=== PATIENT | male | born 1960 | race Caucasian/White ===

== ENCOUNTER 2020-12-15 11:19 | Inpatient (IN) ==
[2020-12-15] MEDS ORDERED: 0.9 % Sodium Chloride 1,000 ML IVC ONE (11:40)
[2020-12-15 12:07] LABS: Hematocrit 36.2 % (37.5-50.1); Hemoglobin 11.9 g/dL (12.9-16.9); Mean Corpuscular HGB Conc 32.9 g/dL (31.6-35.5); Mean Corpuscular Volume 97.3 fL (83.0-100.0); Mean Platelet Volume 9.5 fL (9.4-12.4); Nucleated Red Blood Cells 0.5 /100 WBC (0); Platelet Count 157 K/mcL (140-400); Red Blood Count 3.72 M/mcL (4.19-5.50); Red Cell Distribution Width 16.1 % (11.5-14.5); White Blood Count 17.1 K/mcL (4.3-11.1)
[2020-12-15 12:20] LABS: Alanine Aminotransferase 22 Units/L (7-52); Albumin 3.4 g/dL (3.5-5.7); Albumin/Globulin Ratio 1.3 (1.1-2.2); Alkaline Phosphatase 92 Units/L (34-104); Aspartate Amino Transferase 19 Units/L (13-39); BUN/Creatinine Ratio 22 (6-26); Bilirubin,Direct 0.1 mg/dL (0.0-0.2); Bilirubin,Indirect 0.2 mg/dL (0.0-1.0); Bilirubin,Total 0.3 mg/dL (0.3-1.0); Blood Urea Nitrogen 23 mg/dL (8-23); Calcium 9.3 mg/dL (8.6-10.3); Carbon Dioxide 26 mEq/L (23-29); Chloride 98 mEq/L (98-107); Globulin 2.7 g/dL (2.4-3.5); Glucose 123 mg/dL (70-105); Osmolality,Calculated 287 (280-300); Potassium 3.8 mEq/L (3.5-5.1); Sodium 136 mEq/L (136-145); Total Protein 6.1 g/dL (6.4-8.9); Troponin I < 0.03 ng/mL (< 0.04); eGFR For African Americans > 60 (> 60); eGFR For Non-African Americans > 60 (> 60)
[2020-12-15 12:21] LABS: Activated Partial Thrombo Time 36.5 Seconds (26.0-36.0); INR 1.3; Prothrombin Time 14.7 Seconds (9.4-12.1)
[2020-12-15 12:36] LABS: Lymphocytes # 1.4 K/mcL (0.6-4.6); Monocytes # 0.3 K/mcL (0.0-1.3); Neutrophils # 15.4 K/mcL (1.6-8.9)
[2020-12-15 12:37] LABS: Platelet Estimate Normal (Normal); Polychromasia 1+ (Not Present)
[2020-12-15 12:47] LABS: Bilirubin,Urine Negative (Negative); Blood,Urine Negative (Negative); Clarity,Urine Clear (Clear); Color,Urine Yellow (Yellow); Glucose,Urine (UA) Normal (Normal); Ketones,Urine Negative (Negative); Leukocyte Esterase,Urine Negative (Negative); Nitrite,Urine Negative (Negative); Protein,Urine Negative (Neg-Trace); Specific Gravity,Urine 1.015 (1.010-1.025); Urobilinogen,Urine Normal (Normal)
[2020-12-15] MEDS: 0.9 % Sodium Chloride 1,000 ML IVC ONE (12:48)
[2020-12-15] MEDS ORDERED: Isovue-370 500 ML BOTTLE IVP ONE (13:19)
[2020-12-15] MEDS ORDERED: Azithromycin 500 MG in 0.9 % Sodium Chloride 250 ML IVPB ONE (14:15)
[2020-12-15] MEDS ORDERED: Ondansetron 4 MG/2 ML VIAL IVP PRN (14:47)
[2020-12-15] MEDS ORDERED: Acetaminophen 325 MG TABLET PO PRN (14:47)
[2020-12-15] MEDS ORDERED: Naloxone 0.4 MG/ML INJ IVP PRN (14:47)
[2020-12-15] MEDS ORDERED: Ipratropium/Albuterol Neb 3 ML IH PRN (14:53)
[2020-12-15] MEDS: 0.9 % Sodium Chloride 1,000 ML IVC SCH ×2 (19:49→20:15)
[2020-12-15] MEDS: Morphine Sulfate ER (12 HR) 30 MG TABLET.ER PO SCH ×3 (20:16→23:38)
[2020-12-15] MEDS: *HR* Dabigatran 75 MG CAPSULE PO SCH (20:16)
[2020-12-15] MEDS: Melatonin 3 MG TABLET PO PRN (22:36)
[2020-12-15] MEDS: Saline Nasal Spray 44 ML BOTTLE NS PRN (23:39)
[2020-12-16] MEDS: 0.9 % Sodium Chloride 1,000 ML IVC ONE (00:29)
[2020-12-16] MEDS: 0.9 % Sodium Chloride 1,000 ML IVC SCH (03:51)
[2020-12-16] MEDS: Morphine Sulfate ER (12 HR) 30 MG TABLET.ER PO SCH ×5 (03:52→20:28)
[2020-12-16] MEDS ORDERED: *HR* Enoxaparin 40 MG/0.4 ML SYRINGE SQ SCH (06:00)
[2020-12-16 07:12] LABS: Basophils # 0.1 K/mcL (0.0-0.2); Basophils % 0.4 %; Hematocrit 33.8 % (37.5-50.1); Hemoglobin 10.7 g/dL (12.9-16.9); Immature Granulocytes % 7.3 % (0-4); Lymphocytes # 1.1 K/mcL (0.6-4.6); Lymphocytes % 9.4 %; Mean Corpuscular HGB Conc 31.7 g/dL (31.6-35.5); Mean Corpuscular Hemoglobin 31.8 pg (28.0-33.3); Mean Corpuscular Volume 100.6 fL (83.0-100.0); Monocytes # 0.6 K/mcL (0.0-1.3); Monocytes % 4.8 %; Nucleated Red Blood Cells 0.4 /100 WBC (0); Platelet Count 120 K/mcL (140-400); Red Blood Count 3.36 M/mcL (4.19-5.50); Red Cell Distribution Width 16.4 % (11.5-14.5); Segmented Neutrophils % 78.1 %; White Blood Count 12.1 K/mcL (4.3-11.1)
[2020-12-16 08:23] LABS: BUN/Creatinine Ratio 23 (6-26); Blood Urea Nitrogen 25 mg/dL (8-23); Calcium 8.8 mg/dL (8.6-10.3); Carbon Dioxide 27 mEq/L (23-29); Chloride 102 mEq/L (98-107); Glucose 106 mg/dL (70-105); Magnesium 1.6 mg/dL (1.6-2.6); Osmolality,Calculated 293 (280-300); Potassium 3.6 mEq/L (3.5-5.1); Sodium 139 mEq/L (136-145); eGFR For African Americans > 60 (> 60); eGFR For Non-African Americans > 60 (> 60)
[2020-12-16 08:40] LABS: Neutrophils # 9.5 K/mcL (1.6-8.9)
[2020-12-16 08:49] LABS: Platelet Estimate Decreased (Normal)
[2020-12-16] MEDS ORDERED: NON-FORMULARY MEDICATION 1 EACH EACH (Ezetimibe [Zetia] 10 MG Tablet) PO SCH (09:00)
[2020-12-16] MEDS ORDERED: Azithromycin 500 MG in 0.9 % Sodium Chloride 250 ML IVPB SCH (09:00)
[2020-12-16] MEDS: cefTRIAXone 2,000 MG in 0.9 % Sodium Chloride Mini Bag 100 ML IVPB SCH (10:47)
[2020-12-16] MEDS: *HR* Dabigatran 75 MG CAPSULE PO SCH ×2 (10:56→20:28)
[2020-12-16] MEDS: DilTIAZem CD (24hr) 240 MG CAP.ER.24H PO SCH (10:56)
[2020-12-16] MEDS: Aspirin Enteric Coated 81 MG Tablet PO SCH (10:57)
[2020-12-16] MEDS: Azithromycin 500 MG in 0.9 % Sodium Chloride 250 ML IVPB SCH (11:30)
[2020-12-16] MEDS: Melatonin 3 MG TABLET PO PRN (20:28)
[2020-12-17] MEDS: Morphine Sulfate ER (12 HR) 30 MG TABLET.ER PO SCH ×6 (00:33→20:13)
[2020-12-17] MEDS: cefTRIAXone 2,000 MG in 0.9 % Sodium Chloride Mini Bag 100 ML IVPB SCH (08:23)
[2020-12-17] MEDS: DilTIAZem CD (24hr) 240 MG CAP.ER.24H PO SCH (08:24)
[2020-12-17] MEDS: *HR* Dabigatran 75 MG CAPSULE PO SCH ×2 (08:24→20:13)
[2020-12-17] MEDS: Aspirin Enteric Coated 81 MG Tablet PO SCH (08:24)
[2020-12-17 09:03] LABS: Hematocrit 31.8 % (37.5-50.1); Hemoglobin 10.3 g/dL (12.9-16.9); Mean Corpuscular HGB Conc 32.4 g/dL (31.6-35.5); Mean Corpuscular Hemoglobin 32.6 pg (28.0-33.3); Mean Corpuscular Volume 100.6 fL (83.0-100.0); Platelet Count 115 K/mcL (140-400); Red Blood Count 3.16 M/mcL (4.19-5.50); White Blood Count 12.3 K/mcL (4.3-11.1)
[2020-12-17 09:17] LABS: BUN/Creatinine Ratio 19 (6-26); Blood Urea Nitrogen 21 mg/dL (8-23); Calcium 8.1 mg/dL (8.6-10.3); Carbon Dioxide 26 mEq/L (23-29); Chloride 102 mEq/L (98-107); Glucose 139 mg/dL (70-105); Osmolality,Calculated 289 (280-300); Potassium 3.8 mEq/L (3.5-5.1); Sodium 137 mEq/L (136-145); eGFR For African Americans > 60 (> 60); eGFR For Non-African Americans > 60 (> 60)
[2020-12-17] MEDS: Azithromycin 500 MG in 0.9 % Sodium Chloride 250 ML IVPB SCH (09:45)
[2020-12-17] MEDS: Furosemide 20 MG TABLET PO SCH (17:25)
[2020-12-17] MEDS: Melatonin 3 MG TABLET PO PRN (20:14)
[2020-12-18] MEDS: Morphine Sulfate ER (12 HR) 30 MG TABLET.ER PO SCH ×6 (01:12→20:13)
[2020-12-18] MEDS: DilTIAZem CD (24hr) 240 MG CAP.ER.24H PO SCH (09:32)
[2020-12-18] MEDS: *HR* Dabigatran 75 MG CAPSULE PO SCH ×2 (09:32→20:12)
[2020-12-18] MEDS: Aspirin Enteric Coated 81 MG Tablet PO SCH (09:32)
[2020-12-18] MEDS: cefTRIAXone 2,000 MG in 0.9 % Sodium Chloride Mini Bag 100 ML IVPB SCH (09:33)
[2020-12-18] MEDS: Furosemide 20 MG TABLET PO SCH (09:34)
[2020-12-18] MEDS: Azithromycin 500 MG in 0.9 % Sodium Chloride 250 ML IVPB SCH (10:00)
[2020-12-18] MEDS: Melatonin 3 MG TABLET PO PRN (20:14)
[2020-12-18] MEDS: Saline Nasal Spray 44 ML BOTTLE NS PRN (20:15)
[2020-12-18] MEDS ORDERED: Fluticasone Propionate Nasal 50 MCG/SPRAY BOTTLE NS ONE (21:15)
[2020-12-19] MEDS: Morphine Sulfate ER (12 HR) 30 MG TABLET.ER PO SCH ×6 (01:27→19:58)
[2020-12-19] MEDS: cefTRIAXone 2,000 MG in 0.9 % Sodium Chloride Mini Bag 100 ML IVPB SCH (08:05)
[2020-12-19] MEDS: Loratadine 10 MG TABLET PO SCH (08:08)
[2020-12-19] MEDS: *HR* Dabigatran 75 MG CAPSULE PO SCH ×2 (08:09→19:58)
[2020-12-19] MEDS: DilTIAZem CD (24hr) 240 MG CAP.ER.24H PO SCH (08:09)
[2020-12-19] MEDS: Aspirin Enteric Coated 81 MG Tablet PO SCH (08:09)
[2020-12-19 08:21] LABS: Basophils % 0.2 %; Hematocrit 29.6 % (37.5-50.1); Hemoglobin 9.5 g/dL (12.9-16.9); Immature Granulocytes % 2.2 % (0-4); Lymphocytes # 0.8 K/mcL (0.6-4.6); Lymphocytes % 8.5 %; Mean Corpuscular HGB Conc 32.1 g/dL (31.6-35.5); Mean Corpuscular Hemoglobin 31.7 pg (28.0-33.3); Mean Corpuscular Volume 98.7 fL (83.0-100.0); Mean Platelet Volume 9.5 fL (9.4-12.4); Monocytes # 0.5 K/mcL (0.0-1.3); Monocytes % 4.9 %; Neutrophils # 7.9 K/mcL (1.6-8.9); Platelet Count 94 K/mcL (140-400); Red Cell Distribution Width 15.7 % (11.5-14.5); Segmented Neutrophils % 84.2 %; White Blood Count 9.4 K/mcL (4.3-11.1)
[2020-12-19 08:43] LABS: BUN/Creatinine Ratio 15 (6-26); Blood Urea Nitrogen 12 mg/dL (8-23); Calcium 7.9 mg/dL (8.6-10.3); Carbon Dioxide 27 mEq/L (23-29); Chloride 103 mEq/L (98-107); Glucose 95 mg/dL (70-105); Osmolality,Calculated 284 (280-300); Potassium 3.5 mEq/L (3.5-5.1); Sodium 137 mEq/L (136-145); eGFR For African Americans > 60 (> 60); eGFR For Non-African Americans > 60 (> 60)
[2020-12-19] MEDS: Azithromycin 500 MG in 0.9 % Sodium Chloride 250 ML IVPB SCH (10:11)
[2020-12-19] MEDS: Multivit/Ca/Min/Fe/FA 1 TAB TABLET PO SCH (10:11)
[2020-12-19] MEDS: Ascorbic Acid 500 MG TABLET PO SCH (10:12)
[2020-12-19] MEDS: Vitamin B Complex/Vit C/Vit E 1 EACH TABLET PO SCH (10:12)
[2020-12-19] MEDS: Cyanocobalamin (B-12) 1,000 MCG TABLET PO SCH (10:12)
[2020-12-19] MEDS: Furosemide 40 MG TABLET PO SCH (15:03)
[2020-12-19] MEDS: Melatonin 3 MG TABLET PO PRN (20:05)
[2020-12-20] MEDS: Morphine Sulfate ER (12 HR) 30 MG TABLET.ER PO SCH ×4 (00:45→12:18)
[2020-12-20 06:24] VITALS: BP 114/55
[2020-12-20 07:52] LABS: Basophils % 0.2 %; Hematocrit 29.5 % (37.5-50.1); Hemoglobin 9.5 g/dL (12.9-16.9); Immature Granulocytes % 2.2 % (0-4); Lymphocytes # 0.7 K/mcL (0.6-4.6); Lymphocytes % 7.5 %; Mean Corpuscular HGB Conc 32.2 g/dL (31.6-35.5); Mean Corpuscular Hemoglobin 32.2 pg (28.0-33.3); Mean Platelet Volume 9.6 fL (9.4-12.4); Monocytes # 0.5 K/mcL (0.0-1.3); Monocytes % 5.3 %; Neutrophils # 8.1 K/mcL (1.6-8.9); Nucleated Red Blood Cells 0.2 /100 WBC (0); Platelet Count 107 K/mcL (140-400); Red Blood Count 2.95 M/mcL (4.19-5.50); Red Cell Distribution Width 15.5 % (11.5-14.5); Segmented Neutrophils % 84.8 %; White Blood Count 9.5 K/mcL (4.3-11.1)
[2020-12-20 08:06] LABS: BUN/Creatinine Ratio 14 (6-26); Blood Urea Nitrogen 12 mg/dL (8-23); Calcium 7.9 mg/dL (8.6-10.3); Carbon Dioxide 27 mEq/L (23-29); Chloride 103 mEq/L (98-107); Glucose 101 mg/dL (70-105); Osmolality,Calculated 284 (280-300); Potassium 3.4 mEq/L (3.5-5.1); Sodium 137 mEq/L (136-145); eGFR For African Americans > 60 (> 60); eGFR For Non-African Americans > 60 (> 60)
[2020-12-20] MEDS ORDERED: Azithromycin 250 MG TABLET PO SCH (09:00)
[2020-12-20] MEDS ORDERED: Sennosides/Docusate Sodium TABLET PO ONE (09:54)
[2020-12-20] MEDS: cefTRIAXone 2,000 MG in 0.9 % Sodium Chloride Mini Bag 100 ML IVPB SCH (10:22)
[2020-12-20] MEDS: DilTIAZem CD (24hr) 240 MG CAP.ER.24H PO SCH (10:25)
[2020-12-20] MEDS: Loratadine 10 MG TABLET PO SCH (10:26)
[2020-12-20] MEDS: Multivit/Ca/Min/Fe/FA 1 TAB TABLET PO SCH (10:26)
[2020-12-20] MEDS: Ascorbic Acid 500 MG TABLET PO SCH (10:27)
[2020-12-20] MEDS: Furosemide 40 MG TABLET PO SCH (10:27)
[2020-12-20] MEDS: *HR* Dabigatran 75 MG CAPSULE PO SCH (10:27)
[2020-12-20] MEDS: Cyanocobalamin (B-12) 1,000 MCG TABLET PO SCH (10:28)
[2020-12-20] MEDS: Vitamin B Complex/Vit C/Vit E 1 EACH TABLET PO SCH (10:28)
[2020-12-20] MEDS: Aspirin Enteric Coated 81 MG Tablet PO SCH (10:28)
== END 2020-12-20 15:26 | disposition other institution (70) | DRG 193 ==
LOC: EMEROOPIK 11:19 → INPPIK 11:19
PROVIDERS: ADMIT Family Medicine; ATTEND Family Medicine

== ENCOUNTER 2020-12-20 10:05 | Inpatient (IN) ==
[2020-12-20] MEDS ORDERED: Ipratropium/Albuterol Neb 3 ML IH PRN (15:15)
[2020-12-20] MEDS: Acetaminophen 325 MG TABLET PO PRN (17:52)
[2020-12-20] MEDS: *HR* Dabigatran 75 MG CAPSULE PO SCH (19:44)
[2020-12-20] MEDS: Morphine Sulfate ER (12 HR) 30 MG TABLET.ER PO SCH (19:44)
[2020-12-20] MEDS: Melatonin 3 MG TABLET PO PRN (21:31)
[2020-12-21] MEDS: Morphine Sulfate ER (12 HR) 30 MG TABLET.ER PO SCH ×7 (00:01→23:32)
[2020-12-21 07:31] LABS: Basophils % 0.3 %; Hemoglobin 9.5 g/dL (12.9-16.9); Immature Granulocytes % 1.4 % (0-4); Mean Corpuscular HGB Conc 31.7 g/dL (31.6-35.5); Mean Corpuscular Hemoglobin 31.6 pg (28.0-33.3); Mean Corpuscular Volume 99.7 fL (83.0-100.0); Mean Platelet Volume 9.3 fL (9.4-12.4); Monocytes # 0.7 K/mcL (0.0-1.3); Monocytes % 6.6 %; Neutrophils # 8.7 K/mcL (1.6-8.9); Nucleated Red Blood Cells 0.3 /100 WBC (0); Platelet Count 118 K/mcL (140-400); Red Blood Count 3.01 M/mcL (4.19-5.50); Red Cell Distribution Width 15.7 % (11.5-14.5); Segmented Neutrophils % 82.7 %; White Blood Count 10.5 K/mcL (4.3-11.1)
[2020-12-21 07:39] LABS: BUN/Creatinine Ratio 13 (6-26); Blood Urea Nitrogen 12 mg/dL (8-23); Calcium 7.7 mg/dL (8.6-10.3); Carbon Dioxide 28 mEq/L (23-29); Chloride 101 mEq/L (98-107); Glucose 93 mg/dL (70-105); Osmolality,Calculated 281 (280-300); Potassium 3.5 mEq/L (3.5-5.1); Sodium 136 mEq/L (136-145); eGFR For African Americans > 60 (> 60); eGFR For Non-African Americans > 60 (> 60)
[2020-12-21] MEDS: Acetaminophen 325 MG TABLET PO PRN ×2 (08:04→14:45)
[2020-12-21] MEDS: Cyanocobalamin (B-12) 1,000 MCG TABLET PO SCH (08:05)
[2020-12-21] MEDS: Ascorbic Acid 500 MG TABLET PO SCH (08:07)
[2020-12-21] MEDS: Multivit/Ca/Min/Fe/FA 1 TAB TABLET PO SCH (08:08)
[2020-12-21] MEDS: Aspirin Enteric Coated 81 MG Tablet PO SCH (08:08)
[2020-12-21] MEDS: Vitamin B Complex/Vit C/Vit E 1 EACH TABLET PO SCH (08:08)
[2020-12-21] MEDS: Cefdinir 300 MG CAPSULE PO SCH ×2 (08:09→19:22)
[2020-12-21] MEDS: *HR* Dabigatran 75 MG CAPSULE PO SCH ×2 (08:09→19:22)
[2020-12-21] MEDS: (Ezetimibe [Zetia] 10 MG Tablet) PO SCH (08:15)
[2020-12-21] MEDS: DilTIAZem CD (24hr) 240 MG CAP.ER.24H PO SCH (08:16)
[2020-12-21] MEDS ORDERED: Furosemide 40 MG TABLET PO SCH (09:00)
[2020-12-21] MEDS: Furosemide 20 MG TABLET PO SCH (09:52)
[2020-12-21] MEDS: Sennosides/Docusate Sodium TABLET PO SCH (19:22)
[2020-12-21] MEDS: Melatonin 3 MG TABLET PO PRN (19:24)
[2020-12-22] MEDS: Morphine Sulfate ER (12 HR) 30 MG TABLET.ER PO SCH ×4 (04:56→16:37)
[2020-12-22] MEDS: Furosemide 20 MG TABLET PO SCH ×2 (09:38→16:37)
[2020-12-22] MEDS: Ascorbic Acid 500 MG TABLET PO SCH (09:38)
[2020-12-22] MEDS: Cefdinir 300 MG CAPSULE PO SCH ×2 (09:38→20:39)
[2020-12-22] MEDS: Vitamin B Complex/Vit C/Vit E 1 EACH TABLET PO SCH (09:38)
[2020-12-22] MEDS: Cyanocobalamin (B-12) 1,000 MCG TABLET PO SCH (09:38)
[2020-12-22] MEDS: Aspirin Enteric Coated 81 MG Tablet PO SCH (09:38)
[2020-12-22] MEDS: Sennosides/Docusate Sodium TABLET PO SCH ×2 (09:38→20:39)
[2020-12-22] MEDS: Multivit/Ca/Min/Fe/FA 1 TAB TABLET PO SCH (09:38)
[2020-12-22] MEDS: (Ezetimibe [Zetia] 10 MG Tablet) PO SCH (09:39)
[2020-12-22] MEDS: DilTIAZem CD (24hr) 240 MG CAP.ER.24H PO SCH (09:39)
[2020-12-22] MEDS: *HR* Dabigatran 75 MG CAPSULE PO SCH ×2 (09:39→20:40)
[2020-12-22] MEDS ORDERED: Bisacodyl 10 MG RECTAL SUPPOSITORY RC PRN (12:20)
[2020-12-22] MEDS ORDERED: Lactulose Oral Soln 20 GM/30 ML UDC PO PRN (12:21)
[2020-12-22] MEDS: polyethylene glycoL 3350 17 GM POWD.PACK PO SCH (14:35)
[2020-12-22] MEDS: Melatonin 3 MG TABLET PO PRN (20:39)
[2020-12-22] MEDS: Acetaminophen 325 MG TABLET PO PRN (20:40)
[2020-12-23] MEDS: Morphine Sulfate ER (12 HR) 30 MG TABLET.ER PO SCH ×5 (00:48→23:09)
[2020-12-23] MEDS: *HR* OxyCODONE Immed Rel 5 MG TABLET PO PRN ×3 (03:19→19:31)
[2020-12-23 06:37] LABS: Hematocrit 29.4 % (37.5-50.1); Hemoglobin 9.3 g/dL (12.9-16.9); Mean Corpuscular HGB Conc 31.6 g/dL (31.6-35.5); Mean Corpuscular Hemoglobin 31.5 pg (28.0-33.3); Mean Corpuscular Volume 99.7 fL (83.0-100.0); Mean Platelet Volume 9.3 fL (9.4-12.4); Platelet Count 132 K/mcL (140-400); Red Blood Count 2.95 M/mcL (4.19-5.50); Red Cell Distribution Width 15.4 % (11.5-14.5); White Blood Count 8.6 K/mcL (4.3-11.1)
[2020-12-23 06:58] LABS: BUN/Creatinine Ratio 15 (6-26); Blood Urea Nitrogen 12 mg/dL (8-23); Calcium 7.6 mg/dL (8.6-10.3); Carbon Dioxide 30 mEq/L (23-29); Chloride 99 mEq/L (98-107); Glucose 94 mg/dL (70-105); Osmolality,Calculated 282 (280-300); Potassium 3.9 mEq/L (3.5-5.1); Sodium 136 mEq/L (136-145); eGFR For African Americans > 60 (> 60); eGFR For Non-African Americans > 60 (> 60)
[2020-12-23] MEDS: polyethylene glycoL 3350 17 GM POWD.PACK PO SCH (08:15)
[2020-12-23] MEDS: DilTIAZem CD (24hr) 240 MG CAP.ER.24H PO SCH (08:17)
[2020-12-23] MEDS: Sennosides/Docusate Sodium TABLET PO SCH ×2 (08:17→19:33)
[2020-12-23] MEDS: Furosemide 20 MG TABLET PO SCH ×2 (08:18→17:51)
[2020-12-23] MEDS: Ascorbic Acid 500 MG TABLET PO SCH (08:18)
[2020-12-23] MEDS: Cyanocobalamin (B-12) 1,000 MCG TABLET PO SCH (08:18)
[2020-12-23] MEDS: Multivit/Ca/Min/Fe/FA 1 TAB TABLET PO SCH (08:18)
[2020-12-23] MEDS: Cefdinir 300 MG CAPSULE PO SCH ×2 (08:18→19:32)
[2020-12-23] MEDS: Vitamin B Complex/Vit C/Vit E 1 EACH TABLET PO SCH (08:18)
[2020-12-23] MEDS: Aspirin Enteric Coated 81 MG Tablet PO SCH (08:18)
[2020-12-23] MEDS: *HR* Dabigatran 75 MG CAPSULE PO SCH ×2 (08:19→19:31)
[2020-12-23] MEDS: (Ezetimibe [Zetia] 10 MG Tablet) PO SCH (08:33)
[2020-12-23] MEDS ORDERED: Furosemide 20 MG TABLET PO ONE (18:30)
[2020-12-23] MEDS: Melatonin 3 MG TABLET PO PRN (19:32)
[2020-12-24] MEDS: *HR* OxyCODONE Immed Rel 5 MG TABLET PO PRN ×4 (01:08→21:35)
[2020-12-24] MEDS: Acetaminophen 325 MG TABLET PO PRN ×3 (03:14→21:12)
[2020-12-24] MEDS: Morphine Sulfate ER (12 HR) 30 MG TABLET.ER PO SCH ×2 (09:57→16:41)
[2020-12-24] MEDS: Sennosides/Docusate Sodium TABLET PO SCH ×2 (09:58→21:12)
[2020-12-24] MEDS: Vitamin B Complex/Vit C/Vit E 1 EACH TABLET PO SCH (09:58)
[2020-12-24] MEDS: *HR* Dabigatran 75 MG CAPSULE PO SCH ×2 (09:58→21:11)
[2020-12-24] MEDS: polyethylene glycoL 3350 17 GM POWD.PACK PO SCH (09:59)
[2020-12-24] MEDS: Ascorbic Acid 500 MG TABLET PO SCH (09:59)
[2020-12-24] MEDS: DilTIAZem CD (24hr) 240 MG CAP.ER.24H PO SCH (09:59)
[2020-12-24] MEDS: Multivit/Ca/Min/Fe/FA 1 TAB TABLET PO SCH (09:59)
[2020-12-24] MEDS: Cyanocobalamin (B-12) 1,000 MCG TABLET PO SCH (09:59)
[2020-12-24] MEDS: Aspirin Enteric Coated 81 MG Tablet PO SCH (09:59)
[2020-12-24] MEDS: (Ezetimibe [Zetia] 10 MG Tablet) PO SCH (09:59)
[2020-12-24] MEDS: Furosemide 20 MG TABLET PO SCH (09:59)
[2020-12-24] MEDS: Ondansetron ODT 4 MG TAB.RAPDIS SL PRN (10:24)
[2020-12-24 13:57] LABS: Basophils % 0.2 %; Eosinophils % 0.1 %; Hematocrit 30.9 % (37.5-50.1); Hemoglobin 9.9 g/dL (12.9-16.9); Immature Granulocytes % 1.7 % (0-4); Lymphocytes # 0.7 K/mcL (0.6-4.6); Lymphocytes % 7.4 %; Mean Corpuscular Hemoglobin 31.8 pg (28.0-33.3); Mean Corpuscular Volume 99.4 fL (83.0-100.0); Mean Platelet Volume 9.1 fL (9.4-12.4); Monocytes # 0.8 K/mcL (0.0-1.3); Monocytes % 8.5 %; Neutrophils # 7.6 K/mcL (1.6-8.9); Platelet Count 152 K/mcL (140-400); Red Blood Count 3.11 M/mcL (4.19-5.50); Red Cell Distribution Width 15.2 % (11.5-14.5); Segmented Neutrophils % 82.1 %; White Blood Count 9.2 K/mcL (4.3-11.1)
[2020-12-24 14:11] LABS: BUN/Creatinine Ratio 11 (6-26); Blood Urea Nitrogen 8 mg/dL (8-23); Calcium 7.8 mg/dL (8.6-10.3); Carbon Dioxide 31 mEq/L (23-29); Chloride 97 mEq/L (98-107); Glucose 121 mg/dL (70-105); Osmolality,Calculated 278 (280-300); Sodium 134 mEq/L (136-145); eGFR For African Americans > 60 (> 60); eGFR For Non-African Americans > 60 (> 60)
[2020-12-24] MEDS ORDERED: Furosemide 20 MG/2 ML VIAL IVP ONE (14:54)
[2020-12-24] MEDS ORDERED: Furosemide 20 MG TABLET PO ONE (19:09)
[2020-12-24] MEDS: Melatonin 3 MG TABLET PO PRN (21:12)
[2020-12-25] MEDS: Ondansetron ODT 4 MG TAB.RAPDIS SL PRN ×2 (00:05→11:37)
[2020-12-25] MEDS: Morphine Sulfate ER (12 HR) 30 MG TABLET.ER PO SCH ×4 (01:25→23:34)
[2020-12-25] MEDS ORDERED: Furosemide 20 MG TABLET PO SCH ×2 (08:00→18:00)
[2020-12-25] MEDS: Acetaminophen 325 MG TABLET PO PRN ×3 (08:32→21:13)
[2020-12-25] MEDS: Multivit/Ca/Min/Fe/FA 1 TAB TABLET PO SCH (08:33)
[2020-12-25] MEDS: Ascorbic Acid 500 MG TABLET PO SCH (08:33)
[2020-12-25] MEDS: Aspirin Enteric Coated 81 MG Tablet PO SCH (08:33)
[2020-12-25] MEDS: *HR* Dabigatran 75 MG CAPSULE PO SCH ×2 (08:33→21:07)
[2020-12-25] MEDS: polyethylene glycoL 3350 17 GM POWD.PACK PO SCH (08:33)
[2020-12-25] MEDS: DilTIAZem CD (24hr) 240 MG CAP.ER.24H PO SCH (08:34)
[2020-12-25] MEDS: Vitamin B Complex/Vit C/Vit E 1 EACH TABLET PO SCH (08:34)
[2020-12-25] MEDS: Cyanocobalamin (B-12) 1,000 MCG TABLET PO SCH (08:34)
[2020-12-25] MEDS: Sennosides/Docusate Sodium TABLET PO SCH ×2 (08:34→21:07)
[2020-12-25] MEDS: (Ezetimibe [Zetia] 10 MG Tablet) PO SCH (08:35)
[2020-12-25] MEDS: *HR* OxyCODONE Immed Rel 5 MG TABLET PO PRN ×3 (11:36→22:28)
[2020-12-25] MEDS ORDERED: Perflutren Lipid Microsphere 1.3 ML in 0.9 % Sodium Chloride 8.7 ML IVP PRN (15:59)
[2020-12-25] MEDS: Melatonin 3 MG TABLET PO PRN (22:28)
[2020-12-26] MEDS: Acetaminophen 325 MG TABLET PO PRN (03:23)
[2020-12-26] MEDS: polyethylene glycoL 3350 17 GM POWD.PACK PO SCH (08:03)
[2020-12-26] MEDS: *HR* Dabigatran 75 MG CAPSULE PO SCH (08:04)
[2020-12-26] MEDS: Aspirin Enteric Coated 81 MG Tablet PO SCH (08:05)
[2020-12-26] MEDS: Sennosides/Docusate Sodium TABLET PO SCH (08:05)
[2020-12-26] MEDS: Morphine Sulfate ER (12 HR) 30 MG TABLET.ER PO SCH (08:05)
[2020-12-26] MEDS: Ascorbic Acid 500 MG TABLET PO SCH (08:06)
[2020-12-26] MEDS: Vitamin B Complex/Vit C/Vit E 1 EACH TABLET PO SCH (08:06)
[2020-12-26] MEDS: DilTIAZem CD (24hr) 240 MG CAP.ER.24H PO SCH (08:06)
[2020-12-26] MEDS: Cyanocobalamin (B-12) 1,000 MCG TABLET PO SCH (08:06)
[2020-12-26] MEDS: Multivit/Ca/Min/Fe/FA 1 TAB TABLET PO SCH (08:06)
[2020-12-26] MEDS: (Ezetimibe [Zetia] 10 MG Tablet) PO SCH (08:06)
[2020-12-26] MEDS ORDERED: Furosemide 40 MG TABLET PO SCH (09:00)
[2020-12-26 10:05] VITALS: BP 100/53
[2020-12-26] MEDS: *HR* OxyCODONE Immed Rel 5 MG TABLET PO PRN (10:36)
== END 2020-12-26 10:34 | disposition short-term general hospital (02) | DRG 945 ==
LOC: INPPIK 16:42
PROVIDERS: ADMIT Family Medicine; ATTEND Family Medicine